=== PATIENT | female | born 1990 | race Caucasian/White ===

== ENCOUNTER 2020-04-17 07:53 | Outpatient (REF) | payer OTHER, SELFPAY | END 2020-04-17 07:54 | disposition home or self-care (01) | LOC: HO.HMGCLDS 07:53 | PROVIDERS: PCP Internal Medicine; Visit Provider Internal Medicine | DX: Z20.828 Contact with and (suspected) exposure to other viral communicable diseases (principal) | CPT/HCPCS: C9803; U0003 ==

== ENCOUNTER 2020-05-14 07:50 | Outpatient (REF) | payer OTHER, SELFPAY | END 2020-05-14 07:51 | disposition home or self-care (01) | LOC: HO.HMGCLDS 07:50 | PROVIDERS: PCP Internal Medicine; Visit Provider Internal Medicine | DX: Z20.828 Contact with and (suspected) exposure to other viral communicable diseases (principal) | CPT/HCPCS: C9803; U0003 ==

== ENCOUNTER 2021-03-12 09:32 | Outpatient (REF) | payer OTHER, SELFPAY | END 2021-03-12 09:33 | disposition home or self-care (01) | LOC: HO.HMGCLDS 09:32 | PROVIDERS: PCP Internal Medicine; Visit Provider Internal Medicine | DX: Z20.822 Contact with and (suspected) exposure to COVID-19 (principal) | CPT/HCPCS: C9803; U0003; U0005 ==

== ENCOUNTER 2022-07-23 11:31 | Outpatient (REF) | payer OTHER, SELFPAY ==
[2022-07-23 12:50] LABS: Influenza A PCR NEGATIVE (Negative); Influenza B PCR NEGATIVE (Negative); Resp Syncy Virus RNA Qual PCR NEGATIVE (Negative); SARS COV2 PCR INHOUSE NEGATIVE (Negative)
== END 2022-07-23 11:32 | disposition home or self-care (01) ==
LOC: HO.LNP 11:31
PROVIDERS: Visit Provider Internal Medicine
DX: Z20.822 Contact with and (suspected) exposure to COVID-19 (principal); R09.89 Other specified symptoms and signs involving the circulatory and respiratory systems
CPT/HCPCS: 0241U

== ENCOUNTER 2022-09-23 08:00 | Outpatient (REF) | payer OTHER, SELFPAY ==
[2022-09-23 11:09] LABS: MANUAL DIFF FLAG NO
[2022-09-23 11:30] LABS: Basophils Percent Auto 0.6 % (0-2); Eosinophils Absolute Auto 0.1 X10*3/uL (0.0-0.4); Eosinophils Percent Auto 1.8 % (0-4); Imm Gran Abs Auto 0.01 X10*3/uL (0.00-0.03); Imm Gran Pct Auto 0.2 % (0.0-0.4); Lymphocytes Absolute Auto 1.8 X10*3/uL (1.2-4.9); Mean Corpuscular HGB Conc 34.1 g/dl (31.0-35.0); Mean Corpuscular Hemoglobin 29.9 pg (27.0-33.0); Mean Corpuscular Volume 87.6 fL (80.0-98.0); Mean Platelet Volume 10.2 fL (9.4-12.3); Monocytes Absolute Auto 0.5 X10*3/uL (0.1-1.2); Monocytes Percent Auto 8.7 % (2-11); Neutrophils Percent Auto 54.7 % (45-73); Platelet Count 289 X10*3/uL (160-400); Red Blood Count 5.02 X10*6/uL (4.20-5.50); Red Cell Distribution Width 12.2 % (11.0-16.0); White Blood Count 5.4 X10*3/uL (4.8-10.8)
[2022-09-23 12:14] LABS: Alanine Aminotransferase 16 U/L (0-31); Albumin Level 4.4 g/dL (3.5-5.0); Alkaline Phosphatase 51 U/L (39-117); Anion Gap 11 (12-20); Aspartate Amino Transferase 20 U/L (5-31); Bilirubin Total 0.9 mg/dL (0.0-1.0); Blood Urea Nitrogen 13 mg/dL (9-16); Calcium 9.3 mg/dL (8.4-10.2); Carbon Dioxide 25 mmol/L (22-29); Chloride 109 mmol/L (96-108); Cholesterol 198 mg/dL; Estimated Glomerular Filt Rate > 60; Glucose Fasting 76 mg/dL (60-99); HDL Cholesterol 48 mg/dL; LDL Cholesterol Calculated 135 mg/dl; Potassium 4.1 mmol/L (3.3-5.1); Sodium 141 mmol/L (135-145); Total Protein 6.9 g/dL (6.5-8.0); Triglycerides 79 mg/dL
[2022-09-23 12:17] LABS: TSH reflex Free T4 1.36 uIU/mL (0.32-4.0); Vitamin D 25-OH Total 28.9 ng/mL (>30)
[2022-10-03 02:03] LABS: Factor V Leiden POSITIVE
== END 2022-09-23 08:01 | disposition home or self-care (01) ==
LOC: HO.HMGCLDS 08:00
PROVIDERS: PCP Internal Medicine; Visit Provider Internal Medicine
DX: Z00.00 Encounter for general adult medical examination without abnormal findings (principal); D68.51 Activated protein C resistance
CPT/HCPCS: 36415; 80053; 80061; 81241; 82306; 84443; 85025

== ENCOUNTER 2023-06-30 12:17 | Outpatient (AMB) | payer OTHER, SELFPAY ==
[2023-06-30 13:06] VITALS: BP 120/74; PULSE 81; O2SAT 99; BMI 23.7
--- NOTE | 2023-06-30 13:06 | A.OFFPC_ITS ---
<Statement entered by Kalee Gallo MD - 09/27/24 15:27> This note has been administratively?closed. Vital Signs 06/30/23 13:06 Height 5 ft 3 in Weight 134 lb BMI 23.7 BP 120/74 Blood Pressure Location Rt brachial Position Sitting Pulse 81 Pulse Source Pulse Oximeter Pulse Oximetry (%) 99 Oxygen Delivery Method Room Air Intake Visit Reasons: Annual PE Intake Note: Pt is here today for her PE: Pt states she had a papsmear back in 09/2022 at [facility]: Pt will sign a medical release Is last menstrual period known: Yes Last menstrual period: 06/11/23 Allergies No Known Allergies [No Known Allergies*] Allergy (Unverified 08/24/23 14:10) Medication List - Last Reconciled 06/30/23 by Kalee Gallo MD No Known Home Meds Tobacco use date assessed: 06/30/23 Dental Screening Dental Screen Date: 06/30/23 Did you have a dental visit in the last 12 months?: Yes Did you have a dental problem in the last 6 months where you did not have access to dental care?: No Was dental information given to patient?: Patient has dentist [facility] Medical History (Updated 08/24/23 @ 14:39 by Cici Tan MD) Hyperlipidemia 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 Leiden mutation, heterozygous Surgical History (Updated 08/24/23 @ 14:39 by Cici Tan MD) History of repair of anterior cruciate ligament of right knee Hx of section Family History Mother Factor V Leiden Maternal Grandmother Factor V Leiden DVT (deep venous thrombosis) Diabetes mellitus Social History (Updated 08/24/23 @ 14:12 by Guerita Garcia) Housing: House Patient Tobacco Use Status: Never used Tobacco e-Cigarette/Vaping Use: Never Used service: No Current occupational status: unemployed Cognitive needs: No Hearing needs: No Vision needs: No Female Reproductive History Menstrual Date of last menstrual period: 06/11/23 Questionnaire PHQ-9 Over the last 2 weeks, how often have you been bothered by any of the following problems? 1. Little interest or pleasure in doing things: not at all 2. Feeling down, depressed, or hopeless: not at all 3. Trouble falling or staying asleep, or sleeping too much: not at all 4. Feeling tired or having little energy: not at all 5. Poor appetite or overeating: not at all 6. Feeling bad about yourself - or that you are a failure or have let yourself or your family down: not at all 7. Trouble concentrating on things, such as reading the newspaper or watching television: not at all 8. Moving or speaking so slowly that other people could have noticed. Or the opposite - being so fidgety or restless that you have been moving around a lot more than usual: not at all 9. Thoughts that you would be better off or of hurting yourself in some way: not at all Total score: 0 Source: Developed by Drs. Donovan Valadez, Dayana Billings, Skyler Geller and colleagues, with an educational imelda from [employer]. Thrive Questionnaire Date Thrive assessed: 06/30/23 I am a: Patient What is your living situation today?: I have a steady place to live Within the past 12 months, did the food you bought not last and you didn't have the money to get more?: Never true Within the past 12 months, did you worry whether your food would run out before you got money to buy more?: Never true Do you have trouble paying for medicines?: No Do you have trouble getting transportation to medical appointments?: No Do you have trouble paying your heating and electricity bill?: No Do you have trouble taking care of your child, family member or friend?: No Do you have trouble with day-to-day activities such as bathing, preparing meals, shopping, managing finances, etc.?: No Are you currently unemployed and looking for a job?: No Are you interested in more education?: No THRIVE Score: 0 AUDIT C Alcohol Use Questionnaire (AUDIT-C) 1. How often do you have a drink containing alcohol?: Monthly or less 2. How many drinks containing alcohol do you have on a typical day when you are drinking?: 1 or 2 3. How often do you have six or more drinks on one occasion?: Never Total Score: 1 FELICIA-7 AMB Questionnaire FELICIA-7 Date FELICIA - 7 assessed: 07/29/22 Feeling nervous, anxious, or on edge: 0 = Not at all Not being able to stop or control worryin = Not at all Worrying too much about different things: 0 = Not at all Trouble relaxin = Not at all Being so restless that it is hard to sit still: 0 = Not at all Becoming easily annoyed or irritable: 0 = Not at all Feeling afraid as if something awful might happen: 0 = Not at all Total FELICIA-7 score (0-4 normal; 5-9 mild; 10-14 moderate; 15-21 severe): 0 Source: Developed by Drs. Donovan Valadez, Dayana Billings, Skyler Geller and colleagues, with an educational imelda from [employer]. Physical exam (Primary Care) Vital Signs: Last Vital Signs Pulse 81 06/30/23 13:06 BP 120/74 06/30/23 13:06 Pulse Ox 99 06/30/23 13:06 Oxygen Delivery Method Room Air 06/30/23 13:06 BMI result Body Mass Index 23.7 Tobacco/Smoking Status: Tobacco use Status Tobacco use date assessed 06/30/23 06/30/23 13:20 Patient Tobacco Use Status Never used Tobacco 06/30/23 13:06 e-Cigarette/Vaping Use Never Used 06/30/23 13:06 PHQ-9: PHQ-9 Score PHQ-9: Total score 0 06/30/23 13:47 Thrive Assessment: Date of Thrive Assessment Date Thrive assessed 06/30/23 06/30/23 13:25 Coding Level of Care Code Est Pt Prev Care 18-39y(72573) Diagnoses Factor 5 Leiden mutation, heterozygous D68.51 Hyperlipidemia E78.5 Annual visit for general adult medical examination with abnormal findings Z00.01
== END 2023-06-30 13:55 | disposition home or self-care (01) ==
PROVIDERS: Visit Provider Internal Medicine
DX: D68.51 Activated protein C resistance (principal); E78.5 Hyperlipidemia, unspecified; Z00.01 Encounter for general adult medical examination with abnormal findings
CPT/HCPCS: 99499

== ENCOUNTER → 2023-08-24 14:00 | Outpatient (BNV) | payer OTHER, SELFPAY | PROVIDERS: PCP Internal Medicine; Visit Provider Internal Medicine | DX: D68.51 Activated protein C resistance (principal) | CPT/HCPCS: 99203 ==

== ENCOUNTER 2024-04-01 09:16 | Outpatient (REF) | payer OTHER, SELFPAY ==
[2024-04-01 11:29] LABS: Hematocrit 41.4 % (37.0-47.0); Hemoglobin 14.3 g/dl (12.0-16.0); Mean Corpuscular HGB Conc 34.5 g/dl (31.0-35.0); Platelet Count 277 X10*3/uL (160-400); Red Blood Count 4.76 X10*6/uL (4.20-5.50); Red Cell Distribution Width 11.9 % (11.0-16.0); White Blood Count 4.8 X10*3/uL (4.8-10.8)
[2024-04-01 11:55] LABS: Alanine Aminotransferase 15 U/L (0-31); Albumin Level 4.2 g/dL (3.5-5.0); Alkaline Phosphatase 53 U/L (39-117); Anion Gap 11 (12-20); Aspartate Amino Transferase 21 U/L (5-31); Bilirubin Total 0.7 mg/dL (0.0-1.0); Blood Urea Nitrogen 13 mg/dL (9-16); Calcium 9.1 mg/dL (8.4-10.2); Carbon Dioxide 25 mmol/L (22-29); Chloride 108 mmol/L (96-108); Estimated Glomerular Filt Rate > 60; Glucose Random 91 mg/dL (60-115); Iron 77 mcg/dL (30-160); Percent Iron Saturation 31 % (15-50); Potassium 4.2 mmol/L (3.3-5.1); Sodium 140 mmol/L (135-145); Total Iron Binding Capacity 252 mcg/dL (228-428); Unsaturated Iron Binding 175 ug/dL
[2024-04-01 12:20] LABS: Folate 8.8 ng/mL (> or = 4.0); Vitamin B12 336 pg/mL (200-900)
== END 2024-04-01 09:17 | disposition home or self-care (01) ==
LOC: HO.HMGCLDS 09:16
PROVIDERS: PCP Internal Medicine; Visit Provider Nurse Practitioner Family
DX: R20.2 Paresthesia of skin (principal); H10.9 Unspecified conjunctivitis
CPT/HCPCS: 36415; 80053; 82607; 82746; 83540; 85027; 99212

== ENCOUNTER 2024-04-01 09:16 | Outpatient (AMB) | payer OTHER, SELFPAY ==
[2024-04-01 09:34] VITALS: BP 102/80; PULSE 88; TEMP 36.8; O2SAT 99; BMI 24.8
--- NOTE | 2024-04-01 09:34 | AM.OFFWIN_ITS ---
Intake Vital Signs 04/01/24 09:34 Height 5 ft 3 in Weight 140 lb BMI 24.8 BP 102/80 Blood Pressure Location Lt brachial Position Sitting Pulse 88 Pulse Source Pulse Oximeter Temp 98.2 F Temp Source Oral Pulse Oximetry (%) 99 Oxygen Delivery Method Room Air Intake Visit Reasons: EP-BL hand numbness & feets Intake Note: Pt is here today c/o biltateral hand and feet numbness no injury noted Patient Tobacco Use Status: Never used Tobacco Allergies No Known Allergies [No Known Allergies*] Allergy (Verified 04/01/24 10:17) Medication List - Last Reconciled 04/01/24 by Kacie Mario, [facility]- No Known Home Meds HPI HPI Comments History of Present Illness Details 33-year-old female with factor 5 here to day with 2 complaints. The 1st is that of conjunctivitis of the left eye. Exposed to her who has pink eye. Her left eye started with symptoms yesterday. The other is that of numbness in bilateral legs and feet that started on March 22. Reports that she was in her normal state of health and she had her daughter's sitting on her lap when she developed a sensation. She was able to get up and walk off the symptoms. However they returned the next day after sitting for 4 hours. The numbness and tingling comes and goes. It starts fci down her lower leg and extends to her feet. She denies any overt injury. She denies any alcohol use, history of diabetes. She reports a normal diet, not omitting any meat, dairy. She denies any fever, chills or systemic symptoms. She reports that she feels her blood pumping through her heart and this is new. She denies any chest pain. Wonders if it is anxiety. Exam Awake alert oriented Sclera and conjunctiva clear bilat. No drainage from the left eye. Regular rate and rhythm Moves all extremities x4, bilateral lower extremities neurovascularly intact. Normal reflexes, normal strength, normal tone, normal vibratory and monofilament testing. Plan Treat pink eye with polymyxin. Education provided. In regards to the paresthesias in her lower extremities explained to her that differentials can be something such as B12 deficiency, anemia, diabetes work at also have something to do with her spine. Advised that I can check labs today however she will need to follow up with her primary care for an ongoing workup of her complaints. I did also offer an EKG today but she declined. Labs along w/ physical exam are normal/benign. Recommend routine fu with PCP Educated on reasons to seek care in the emergency room. This note is constructed using voice recognition software. While every effort has been made to ensure accuracy in hydraulic press in operator, still errors may have been included Sometimes, these errors may affect the content or meaning of the given sentence . Total time spent caring for the patient today was 30 minutes. 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 Leiden mutation, heterozygous Surgical History (Updated 08/24/23 @ 14:39 by Cici Tan MD) History of repair of anterior cruciate ligament of right knee Hx of section Family History Mother Factor V Leiden Maternal Grandmother Factor V Leiden DVT (deep venous thrombosis) Diabetes mellitus Social History (Updated 08/24/23 @ 14:12 by Guerita Garcia) Housing: House Patient Tobacco Use Status: Never used Tobacco e-Cigarette/Vaping Use: Never Used service: No Current occupational status: unemployed Cognitive needs: No Hearing needs: No Vision needs: No Physical Exam Vital Signs: Last Vital Signs Temp 98.2 F 04/01/24 09:34 Pulse 88 04/01/24 09:34 BP 102/80 04/01/24 09:34 Pulse Ox 99 04/01/24 09:34 Oxygen Delivery Method Room Air 04/01/24 09:34 BMI result Body Mass Index 24.8 Results Reviewed Results Reviewed: RUN: 04/01/24 1258 PAGE 1 [facility] [address] [place] [id number] Tennis Desk Team Member: Kody Wright M.D. Specimen Inquiry Name: Kya Espinosa Age/Sex: 33/F : 1990 Unit#: [id number] Attend Dr: Kacie Mario [facility] Re04/01/24 Status: REG REF Location: [facility] Disch: SPEC : [id number] SILVIANO: 04/01/24 STATUS: COMP REQ : [id number] RECD: 04/01/[address]: Kacie Mario [facility] COMP: 04/01/24 ENTERED: 04/01/[address]: Kalee Gallo MD ORDERED: CBC No Diff Test Result Flag Reference WBC 4.8 4.8-10.8 X10*3/uL RBC 4.76 4.20-5.50 X10*6/uL HGB 14.3 12.0-16.0 g/dl HCT 41.4 37.0-47.0 % MCV 87.0 80.0-98.0 fL MCH 30.0 27.0-33.0 pg MCHC 34.5 31.0-35.0 g/dl RDW 11.9 11.0-16.0 % PLT 277 160-400 X10*3/uL MPV 10.0 9.4-12.3 fL NRBC Pct Auto 0.0 0.0-0.2 /100WBC NRBC Abs Auto 0.000 0.0-0.012 X10*3/uL END OF REPORT RUN: 04/01/24 1259 PAGE 1 [facility] [address] [place] [id number] Tennis Desk Team Member: Kody Wright M.D. Specimen Inquiry Name: Kya Espinosa Age/Sex: 33/F : 1990 Unit#: [id number] [facility] Dr[facility]01/[facility] Status: REG REF Location: [facility] Disch: SPEC : [id number] SILVIANO: 04/01/24 STATUS: COMP REQ : [id number] RECD: 04/01/24-[address]: Kacie Mario [facility] COMP: 04/01/24 ENTERED: 04/01/[address]: Kalee Gallo MD ORDERED: CMP, IRON PROF Test Result Flag Reference Sodium 140 135-145 mmol/L Potassium 4.2 3.3-5.1 mmol/L CL 108 96-108 mmol/L CO2 25 22-29 mmol/L Gap 11 L 12-20 BUN 13 9-16 mg/dL Creat 0.84 0.5-1.4 mg/dL EGFR > 60 NOTE: For -Maltese individuals, multiply the result by 1.210. Chronic Kidney Disease: Estimated GFR < 60 mL/min/1.73m2 Severe Kidney Disease: Estimated GFR < 15 mL/min/1.73m2 Glucose, Random 91 60-115 mg/dL CA 9.1 8.4-10.2 mg/dL Iron 77 30-160 mcg/dL TIBC 252 228-428 mcg/dL Saturation 31 15-50 % UIBC 175 ug/dL Total Bili 0.7 0.0-1.0 mg/dL AST (GOT) 21 5-31 U/L ALT (GPT) 15 0-31 U/L Protein, Total 7.0 6.5-8.0 g/dL Alb 4.2 3.5-5.0 g/dL Alk Phos 53 39-117 U/L END OF REPORT Assessment & Plan Assessment & Plan (1) Paresthesia of lower extremity: Code(s): R20.2 - Paresthesia of skin (2) Bacterial conjunctivitis of left eye: Code(s): H10.9 - Unspecified conjunctivitis Plan: . Plan . Orders: Orders Vitamin B12 and Folate Today R20.2 - Paresthesia of skin Complete Blood Count no Diff Today R20.2 - Paresthesia of skin IRON PROFILE Today R20.2 - Paresthesia of skin Comprehensive Met. Panel Today R20.2 - Paresthesia of skin Medications: New polymyxin B sulf-trimethoprim 10,000 unit- 1 mg/mL APPLY TO BOTH EYES while awake; do not exceed 6 doses in 24 hours 1 drp ophthalmic (eye) QID 10 mL 0RF 5 days Patient Instructions: Put cold or warm wet cloths on your eye a few times a day if the eye hurts. Do not wear contact lenses or eye makeup until the pink eye is gone. Throw away any eye makeup you were using when you got pink eye. Clean your contacts and storage case. Wash bed linen after 24 hours of antibiotic eye drop use. Do not share eye drops. Use a clean towel to wash your face each day until symptoms are gone. This will help prevent recurrence. What is pink eye? [place] eye is a term people use to describe an infection or irritation of the eye. The medical term for pink eye is conjunctivitis. If you have pink eye, your eye (or eyes) might: ?Turn pink or red ?Weep or ooze a gooey liquid ?Become itchy or burn ?Get stuck shut, especially when you first wake up [place] eye can be caused by an infection, allergies, or an unknown irritation. Can you catch pink eye from someone else? Yes. When pink eye is caused by an infection, it can spread easily. Usually, people catch it from touching something that has been in contact with an infected person's eye. It can also be spread when an infected person touches someone else, and then that person touches their eye. If someone you know has pink eye, avoid touching their pillowcases, towels, or other personal items. When should I see a doctor or nurse? See your doctor or nurse if your eye hurts, or if you still have trouble seeing clearly after blinking. If you do not have these problems, but think you might have pink eye, your doctor or nurse might be able to give you advice over the phone. Can pink eye be treated? Most cases of pink eye go away on their own without treatment. But some types of pink eye can be treated. When pink eye is caused by infection, it is usually caused by a virus, so antibiotics will not help. Still, pink eye caused by a virus can last several days. ?[place] eye caused by an infection with bacteria can be treated with antibiotic eye drops, gel, or ointment. ?[place] eye caused by other problems can be treated with eye drops normally used to treat allergies. These drops will not cure the pink eye, but they can help with itchiness and irritation. When using eye drops for infection, do not touch your healthy eye after touching your infected eye. Also, do not touch the bottle or dropper directly onto 1 eye and then use it in the other. These things can cause the infection to spread from 1 eye to the other. If your eyelids feel swollen, it might also help to hold a cool wet cloth on the area. What if I wear contact lenses? If you wear contact lenses and you have symptoms of pink eye, it is really important to have a doctor look at your eyes. In people who wear contacts, the symptoms of pink eye can be caused by corneal abrasion. Corneal abrasion is a scratch on the eye and can be a serious problem. During treatment for eye infections, you might need to stop wearing your contacts for a short time. If your contacts are disposable, throw them away and use new ones. If your contacts are not disposable, you need to carefully clean them. You should also throw away your contact lens case and get a new one. When can I go back to work or school? If you have pink eye caused by an infection, remember that it can spread very easily. The best way to avoid spreading it is to stay away from other people until you no longer have symptoms. If this is not possible, wash your hands often (figure 1). It's also important to avoid touching your eyes and sharing items that could spread the infection. Schools and day cares usually have rules about when a child with pink eye can return. If a child has a bacterial infection, they will probably need to stay home until they have gotten antibiotic eye drops or ointment for 24 hours. Can pink eye be prevented? To keep from getting or spreading pink eye caused by an infection: ?Wash your hands often with soap and water. ?Try not to touch your eyes. ?Avoid sharing towels, bedding, or other personal items with a person who has pink eye. If your pink eye is caused by allergies, it might help to stay inside with the windows shut as much as possible during peak allergy seasons. What problems should I watch for? Call your doctor or nurse if: ?You have trouble seeing clearly after blinking. ?Your eye is still red or has drainage after 3 days. ?You have eye pain that is getting worse. Coding Level of Care Code Est Pt Level 4 (91964) Diagnoses Paresthesia of lower extremity R20.2 Bacterial conjunctivitis of left eye H10.9
== END 2024-04-01 10:32 | disposition home or self-care (01) ==
PROVIDERS: PCP Internal Medicine; Visit Provider Nurse Practitioner Family
DX: R20.2 Paresthesia of skin (principal); H10.9 Unspecified conjunctivitis

== ENCOUNTER 2024-07-13 13:49 | Outpatient (AMB) | payer OTHER, SELFPAY ==
[2024-07-13 13:56] VITALS: BP 100/68; PULSE 81; RESP 14; TEMP 37; O2SAT 100; BMI 25.5
--- NOTE | 2024-07-13 13:56 | A.OFFPC_ITS ---
Vital Signs 07/13/24 13:56 Height 5 ft 3 in Weight 144 lb BMI 25.5 BP 100/68 Blood Pressure Location Rt brachial Position Sitting Respiration 14 Pulse 81 Pulse Source Pulse Oximeter Temp 98.6 F Temp Source Oral Pulse Oximetry (%) 100 Oxygen Delivery Method Room Air Intake Visit Reasons: Annual PE Intake Note: Pt is here today for her PE: Is last menstrual period known: Yes Last menstrual period: 06/24/24 Allergies No Known Allergies [No Known Allergies*] Allergy (Verified 07/13/24 14:32) Medication List - Last Reconciled 07/13/24 by Kalee Gallo MD No Known Home Meds Tobacco use date assessed: 07/13/24 Dental Screening Dental Screen Date: 07/13/24 Did you have a dental visit in the last 12 months?: Yes Did you have a dental problem in the last 6 months where you did not have access to dental care?: No Was dental information given to patient?: Patient has dentist HPI Annual PE HPI Details 33 year-old woman with history of hetero zygous positivity for factor 5 laden mutation, diagnosed in her teenage years, she has never experienced thrombosis, here today for her physical exam.. She received prophylactic Lovenox after delivery of her twins 3 years ago. She is not a smoker and has no other risk factors such as obesity or use of hormonal contraception. Her family history is significant for her maternal grandmother having had DVT at an older age. Her mother was never diagnosed with it. She was seen by Hematology and was told that she has a 3 to 5 fold increased risk for venous thrombosis and she may never experience thromboembolism if she does not have any other inciting risk factors. She was encouraged to continue with active life style, avoid estrogen containing contraception or smoking, and there is no role of prophylactic anticoagulation . On previous labs done her fasting lipid panel showed mild elevation in LDL cholesterol. Patient remains active, and has been compliant with healthy eating habits. Currently feels well with no complaints at present time [facility] Medical History Hyperlipidemia 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 Leiden mutation, heterozygous Surgical History History of repair of anterior cruciate ligament of right knee Hx of section Family History Mother Factor V Leiden Maternal Grandmother Factor V Leiden DVT (deep venous thrombosis) Diabetes mellitus Social History Housing: House Patient Tobacco Use Status: Never used Tobacco e-Cigarette/Vaping Use: Never Used service: No Current occupational status: unemployed Cognitive needs: No Hearing needs: No Vision needs: No Female Reproductive History Menstrual Date of last menstrual period: 06/24/24 Questionnaire PHQ-9 Over the last 2 weeks, how often have you been bothered by any of the following problems? 1. Little interest or pleasure in doing things: not at all 2. Feeling down, depressed, or hopeless: not at all 3. Trouble falling or staying asleep, or sleeping too much: not at all 4. Feeling tired or having little energy: not at all 5. Poor appetite or overeating: not at all 6. Feeling bad about yourself - or that you are a failure or have let yourself or your family down: not at all 7. Trouble concentrating on things, such as reading the newspaper or watching television: not at all 8. Moving or speaking so slowly that other people could have noticed. Or the opposite - being so fidgety or restless that you have been moving around a lot more than usual: not at all 9. Thoughts that you would be better off or of hurting yourself in some way: not at all Total score: 0 Depression Screening Interpretation: Negative Depression Screening Done: Yes 04663 - PHQ-9 Billing: Yes Source: Developed by Drs. Donovan Valadez, Dayana Billings, Skyler Geller and colleagues, with an educational imelda from [employer]. Thrive Questionnaire Date Thrive assessed: 07/13/24 I am a: Patient What is your living situation today?: I have a steady place to live Within the past 12 months, did the food you bought not last and you didn't have the money to get more?: Never true Within the past 12 months, did you worry whether your food would run out before you got money to buy more?: Never true Do you have trouble paying for medicines?: No Do you have trouble getting transportation to medical appointments?: No Do you have trouble paying your heating and electricity bill?: No Do you have trouble taking care of your child, family member or friend?: No Do you have trouble with day-to-day activities such as bathing, preparing meals, shopping, managing finances, etc.?: No Are you currently unemployed and looking for a job?: I choose not to answer this question Are you interested in more education?: No Please select the resources that you would like help with: None Currently or been in a relationship where the following occur: No concerns reported THRIVE Score: 0 AUDIT C Alcohol Use Questionnaire (AUDIT-C) 1. How often do you have a drink containing alcohol?: Monthly or less 2. How many drinks containing alcohol do you have on a typical day when you are drinking?: 1 or 2 3. How often do you have six or more drinks on one occasion?: Never Total Score: 1 FELICIA-7 AMB Questionnaire FELICIA-7 Date FELICIA - 7 assessed: 07/13/24 Feeling nervous, anxious, or on edge: 0 = Not at all Not being able to stop or control worryin = Not at all Worrying too much about different things: 0 = Not at all Trouble relaxin = Not at all Being so restless that it is hard to sit still: 0 = Not at all Becoming easily annoyed or irritable: 0 = Not at all Feeling afraid as if something awful might happen: 0 = Not at all Total FELICIA-7 score (0-4 normal; 5-9 mild; 10-14 moderate; 15-21 severe): 0 Source: Developed by Drs. Donovan Valadez, Dayana Billings, Skyler Geller and colleagues, with an educational imelda from [employer]. FELICIA-7 Assessment Billing FELICIA-7 Assessment Tool: FELICIA-7 Assessment 97169 Review of Systems Const Denies body aches, Denies fatigue, Denies fever(s), Denies headache(s) and Denies weakness Eyes Denies change in vision, Denies eye discharge and Denies itchy eyes ENT Denies dizziness, Denies headache(s), Denies nasal congestion, Denies nasal discharge and Denies sore throat Card Denies chest pain, Denies lightheadedness, Denies palpitations and Denies dyspnea Resp Denies chest congestion, Denies cough and Denies dyspnea GI Denies abdominal pain, Denies change in bowel habits and Denies heartburn Denies hematuria, Denies urinary frequency, Denies dysuria and Denies urinary urgency Musc Reports no additional complaints Skin/Breast Denies breast pain, Denies breast mass, Denies lesions and Denies rash Neuro Denies dizziness, Denies headache(s) and Denies weakness Psych Reports no additional complaints Endo Denies fatigue, Denies polydipsia, Denies polyuria and Denies palpitations Brian/Lymph Denies easy bruising Aller/Immun Denies itchy eyes and Denies seasonal rhinorrhea Physical exam (Primary Care) Vital Signs: Last Vital Signs Temp 98.6 F 07/13/24 13:56 Pulse 81 07/13/24 13:56 Resp 14 07/13/24 13:56 BP 100/68 07/13/24 13:56 Pulse Ox 100 07/13/24 13:56 Oxygen Delivery Method Room Air 07/13/24 13:56 BMI result Body Mass Index 25.5 Tobacco/Smoking Status: Tobacco use Status Tobacco use date assessed 07/13/24 07/13/24 13:59 Patient Tobacco Use Status Never used Tobacco 07/13/24 13:59 e-Cigarette/Vaping Use Never Used 07/13/24 13:59 PHQ-9: PHQ-9 Score PHQ-9: Total score 0 07/13/24 14:57 Depression Screening Interpretation: Negative Thrive Assessment: Date of Thrive Assessment Date Thrive assessed 07/13/24 07/13/24 13:59 Currently or been in a relationship where the following occur: No concerns re ported Advance Care Planning discussion: Completed/Scanned Date of discussion: 07/13/24 Who was present: Patient Forms completed: Health Care Proxy Time spent: 16-45 minutes Actual minutes spent: 2 Const General: no acute distress, well developed and alert Nutritional Appearance: average body habitus Orientation/consciousness: patient oriented x3 HENMT Head: Yes normocephalic Ears: hearing grossly normal bilaterally, external ears normal and TM's normal bilaterally General nose exam: Normal external nose present Face and sinus: Yes face symmetric Mouth: Normal oral and palatal mucosa present, oropharynx normal and moist mucous membranes Eyes General: appearance normal, both eyes and all related structures Periorbital: periorbital findings normal Eyelids: Yes eyelids normal Pupils: Equal, round and reactive pupils present EOM: EOMs intact bilaterally Neck Neck: Yes full ROM, Yes no lymphadenopathy and Yes supple Thyroid: Thyroid normal Chest Chest palpation & inspection: normal inspection of the chest and normal palpation of entire chest wall Breast/axilla palpation: normal palpation of the breasts Resp Effort & Inspection: normal respiratory effort and able to speak in complete sentences Cardio Rate: regular rate Rhythm: regular rhythm Heart sounds: S1 normal heart sound present and S2 normal heart sound present GI Palpation (GI): Soft to palpation, nontender, no guarding and no masses Auscultation: normal bowel sounds General: Yes no CVA tenderness Back/Spine/Pelvis Back: no CVA tenderness and No back tenderness Skin General skin exam: no rashes or lesions noted Neuro General: patient oriented x3, gait normal, tone normal, moves all extremities, Normal light touch and pain sensation, no focal motor deficits, CN's II-XI intact bilaterally and normal sensation to monofilament Cranial nerves: Yes Equal, round and reactive pupils present Cognition (Neuro): normal cognition Gait exam (Neuro): Normal gait present Extrem General: Yes full ROM, Yes normal exam except as noted and Yes no pedal edema Results Reviewed Results Reviewed: Name: Kya Espinosa Age/Sex: 33/F : 1990 Unit#: [id number] Attend Dr: Kacie Mario Re04/01/24 Status: DEP REF Location: [facility] Disch: SPEC : [id number] SILVIANO: 04/01/24 STATUS: COMP REQ : [id number] RECD: 04/01/24-[address]: Kacie Mario COMP: 04/01/24-1154 ENTERED: 04/01/24-[address]: Kalee Gallo MD ORDERED: CMP, IRON PROF Test Result Flag Reference Sodium 140 135-145 mmol/L Potassium 4.2 3.3-5.1 mmol/L CL 108 96-108 mmol/L CO2 25 22-29 mmol/L Gap 11 L 12-20 BUN 13 9-16 mg/dL Creat 0.84 0.5-1.4 mg/dL EGFR > 60 NOTE: For -[place] Citizen individuals, multiply the result by 1.210. Chronic Kidney Disease: Estimated GFR < 60 mL/min/1.73m2 Severe Kidney Disease: Estimated GFR < 15 mL/min/1.73m2 Glucose, Random 91 60-115 mg/dL CA 9.1 8.4-10.2 mg/dL Iron 77 30-160 mcg/dL TIBC 252 228-428 mcg/dL Saturation 31 15-50 % UIBC 175 ug/dL Total Bili 0.7 0.0-1.0 mg/dL AST (GOT) 21 5-31 U/L ALT (GPT) 15 0-31 U/L Protein, Total 7.0 6.5-8.0 g/dL Alb 4.2 3.5-5.0 g/dL Alk Phos 53 39-117 U/L Name: Kya Espinosa Age/Sex: 33/F : 1990 Unit#: [id number] Attend Dr: Kacie MarioPJania Re04/01/24 Status: DEP REF Location: [facility] Disch: SPEC : [id number] SILVIANO: 04/01/24 STATUS: COMP REQ : [id number] RECD: 04/01/24-[address]: Kacie Mario [facility] COMP: 04/01/24 ENTERED: 04/01/[address]: Kalee Gallo MD ORDERED: CBC No Diff Test Result Flag Reference WBC 4.8 4.8-10.8 X10*3/uL RBC 4.76 4.20-5.50 X10*6/uL HGB 14.3 12.0-16.0 g/dl HCT 41.4 37.0-47.0 % MCV 87.0 80.0-98.0 fL MCH 30.0 27.0-33.0 pg MCHC 34.5 31.0-35.0 g/dl RDW 11.9 11.0-16.0 % PLT 277 160-400 X10*3/uL MPV 10.0 9.4-12.3 fL NRBC Pct Auto 0.0 0.0-0.2 /100WBC NRBC Abs Auto 0.000 0.0-0.012 X10*3/uL END OF REPORT Coding Level of Care Code Est Pt Prev Care 18-39y(89640) Diagnoses Annual visit for general adult medical examination with abnormal findings Z00.01 Hyperlipidemia, unspecified hyperlipidemia type E78.5 Hyperlipidemia type: unspecified Encounter for counseling regarding advance directives Z71.89 Additional Codes FELICIA-7 Assessment Billing - FELICIA-7 Assessment Tool: FELICIA-7 Assessment 66649 ([id number]) PHQ-9 - 21321 - PHQ-9 Billing: Yes ([id number]) Vital Signs *Quality* - Advance Care Planning discussion: Completed/Scanned ([id number]) Vital Signs *Quality* - Time spent: 16-45 minutes ([id number]) Assessment & Plan Assessment & Plan (1) Annual visit for general adult medical examination with abnormal findings: Code(s): Z00.01 - Encounter for general adult medical examination with abnormal findings Plan: Will check another vanc panel and vitamin-D level. Reviewed labs from March which showed normal CBC , electrolytes, glucose levels , liver enzymes, fasting lipid panel and vitamin-D level ordered recommend dental visits every 6 months and regular eye exams, at least every 2 years. Take adequate calcium in diet and vitamin-D 3 at 2000 IU per cap once a day, in addition to weight-bearing exercises to help maintain good muscle tone and weight control. Instructed to do self-breast exam, start with yearly mammogram at age 40. Goes to her own OBGYN for routine Pap and pelvic exam. Up-to-date with her Tdap, reminded to get her yearly flu vaccine and COVID booster (2) Hyperlipidemia: Code(s): E78.5 - Hyperlipidemia, unspecified Category: Medical Qualifiers: Hyperlipidemia type: unspecified Qualified Code(s): E78.5 - Hyperlipidemia, unspecified Plan: Fasting lipid panel ordered, reinforced importance of following a healthy diet and getting regular exercise (3) Encounter for counseling regarding advance directives: Code(s): Z71.89 - Other specified counseling Plan: Initiated the conversation about Advanced Directives. Advanced Directives help patients prepare for current and future decisions about their medical treatment and place of care. Discussed with patient that it is a process where a patients current condition and prognosis are reviewed, their wishes for information regarding their illness are elicited, and likely medical dilemmas are presented and options discussed. Healthcare proxy form completed today The form can be amended as needed, reviewed yearly and make changes as needed Orders: Orders Vitamin D 25-OH Total 07/13/24 E78.5 - Hyperlipidemia, unspecified, Z00.01 - Encounter for general adult medical examination with abnormal findings, Z71.89 - Other specified counseling Lipid Panel 07/13/24 E78.5 - Hyperlipidemia, unspecified, Z00.01 - Encounter for general adult medical examination with abnormal findings, Z71.89 - Other specified counseling
== END 2024-07-13 14:50 | disposition home or self-care (01) ==
PROVIDERS: PCP Internal Medicine; Visit Provider Internal Medicine
DX: Z00.01 Encounter for general adult medical examination with abnormal findings (principal); E78.5 Hyperlipidemia, unspecified; Z71.89 Other specified counseling

== ENCOUNTER → 2024-07-13 13:49 | Outpatient (BNVA) | payer OTHER, SELFPAY | PROVIDERS: PCP Internal Medicine; Visit Provider Internal Medicine | DX: Z00.01 Encounter for general adult medical examination with abnormal findings (principal); E78.5 Hyperlipidemia, unspecified; Z71.89 Other specified counseling | CPT/HCPCS: 96127; 99395; 99497 ==

== ENCOUNTER 2025-02-15 15:08 | Outpatient (AMB) | payer OTHER, SELFPAY ==
[2025-02-15 15:09] VITALS: BP 112/70; PULSE 91; TEMP 37; O2SAT 98; BMI 24.8
--- NOTE | 2025-02-15 15:09 | AM.OFFWIN_ITS ---
Intake Vital Signs 02/15/25 15:09 Height 5 ft 3 in Weight 140 lb BMI 24.8 BP 112/70 Blood Pressure Location Rt brachial Position Sitting Pulse 91 Pulse Source Pulse Oximeter Temp 98.6 F Temp Source Oral Pulse Oximetry (%) 98 Oxygen Delivery Method Room Air Intake Visit Reasons: EP-swollen abdomen pain & diarrhea Intake Note: pt presents with increased diarrhea and upper abdominal pain, flatulence gives relief for the last couple months Patient Tobacco Use Status: Never used Tobacco Allergies No Known Allergies (No Known Allergies*) Allergy (Verified 02/15/25 15:15) Do you need a note to return to daycare/school/sports/work: No HPI HPI Comments History of Present Illness Details History of Present Illness - The patient is a 34-year-old female pr esenting with abdominal bloating and pain. - The patient reports a history of bloat ing issues since high school, with symptoms being on and off, typically resolving within a week. - Over the past two months, the bloating has become painful, localized in the mid-abdomen, and worsens with food intake. - Certain foods, such as pastas, hard br avery, grapes, and watermelon, exacerbate the symptoms. - The patient has attempted dietary jelena fications, including cutting out bread and pasta, which initially improved symptoms. - Recently, the patient suspects gluten may be a contributing factor and has considered eliminating it completely. - The patient experiences diarrhea, whic h is watery and occurs during severe episodes, but denies any blood or mucus in stools. - The patient reports a history of Facto r V Leiden but denies any significant weight changes or gallstones during . - Lifestyle factors include stress relat ed to parenting, caffeine consumption, and no alcohol or tobacco use. - The patient has not undergone any prio r gastrointestinal workup or blood tests related to these symptoms. - She denies fever, chills, CP, SOB, or back pain. - She is currently on her menses and den ies vaginal discharge or itching. - She denies dysuria, hematuria, melena, or hematochezia. Physical Exam General: Cooperative, healthy appearing, comfortable, no acute distress and well developed Orientation: Patient oriented x3 Limitations: No limitations Respiratory: Normal respiratory effort and able to speak in complete sentences. Clear to auscultation bilaterally. No w/r/r noted. Cardiovascular: Regular rate and rhythm. Normal S1 and S2. No m/r/g noted. GI: Hypoactive BS noted. Soft, non-distended, tender to palpation of the epigastric region. Mild guarding noted. Negative [place]. Negative Rovsing noted. Negative CVA tenderness noted. Skin: No rashes or lesions noted. Neuro: Patient oriented x3 Extremities: Normal to inspection Patient was informed and verbally consented to the use of an ambient scribe for clinic note documentation during this visit. 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 Leiden mutation, heterozygous Surgical History History of repair of anterior cruciate ligament of right knee Hx of section Family History Mother Factor V Leiden Maternal Grandmother Factor V Leiden DVT (deep venous thrombosis) Diabetes mellitus Social History Housing: House Patient Tobacco Use Status: Never used Tobacco e-Cigarette/Vaping Use: Never Used service: No Current occupational status: unemployed Cognitive needs: No Hearing needs: No Vision needs: No Review of Systems Const All systems reviewed & are unremarkable except as noted in HPI and below Physical Exam Vital Signs: Last Vital Signs Temp 98.6 F 02/15/25 15:09 Pulse 91 02/15/25 15:09 BP 112/70 02/15/25 15:09 Pulse Ox 98 02/15/25 15:09 Oxygen Delivery Method Room Air 02/15/25 15:09 BMI result Body Mass Index 24.8 Assessment & Plan Assessment & Plan (1) Epigastric pain: Code(s): R10.13 - Epigastric pain Plan Most likely PUD vs gastritis vs pancreatitis vs hepatitis vs a gluten/lactose s ensitivity vs possible h pylori infection plan - Blood tests including white blood cell count, liver enzymes, and kidney function to rule out underlying conditions. - H. pylori test to check for stomach infection. - Referral to gastroenterology for further evaluation. - Start omeprazole to manage stomach acid levels. - diet as tolerated. - Maintain a food diary to identify dietary triggers. - follow up with PCP Orders: Orders H pylori Ag Stool Today R10.13 - Epigastric pain Comprehensive Met. Panel Today R10.13 - Epigastric pain Complete Blood Count Auto Diff Today R10.13 - Epigastric pain Referrals Gastroenterology Referral R10.13 - Epigastric pain Medications: New omeprazole 20 mg PO DAILY 30 caps 0RF Coding Level of Care Code Est Pt Level 4 (77740) Diagnoses Epigastric pain R10.13
--- OUTSIDE RECORDS SUMMARY | 2025-02-15 19:23 | XMS_ITS ---
Author Name [facility] Organization Unknown Care Team Organization Name Specialty Phone Email Start Date End Da te [facility] Termed, PROVIDER Primary Care 03/31/202212/22
== END 2025-02-15 15:41 | disposition home or self-care (01) ==
PROVIDERS: PCP Internal Medicine; Visit Provider Physician Assistant Medical
DX: R10.13 Epigastric pain (principal)

== ENCOUNTER → 2025-02-15 15:08 | Outpatient (BNVA) | payer OTHER, SELFPAY | PROVIDERS: PCP Internal Medicine; Visit Provider Physician Assistant Medical | DX: R10.13 Epigastric pain (principal) | CPT/HCPCS: 99212 ==

== ENCOUNTER 2025-02-16 08:47 | Outpatient (REF) | payer OTHER, SELFPAY ==
[2025-02-16 10:14] LABS: MANUAL DIFF FLAG NO
[2025-02-16 10:39] LABS: Hematocrit 40.6 % (37.0-47.0); Hemoglobin 14.0 g/dl (12.0-16.0); Imm Gran Abs Auto 0.03 X10*3/uL (0.00-0.03); Imm Gran Pct Auto 0.7 % (0.0-0.4); Lymphocytes Absolute Auto 1.6 X10*3/uL (1.2-4.9); Mean Corpuscular HGB Conc 34.5 g/dl (31.0-35.0); Mean Corpuscular Hemoglobin 30.2 pg (27.0-33.0); Mean Corpuscular Volume 87.7 fL (80.0-98.0); NRBC Abs Auto 0.000 X10*3/uL (0.0-0.012); NRBC Pct Auto 0.0 /100WBC (0.0-0.2); Platelet Count 273 X10*3/uL (160-400); Red Blood Count 4.63 X10*6/uL (4.20-5.50); White Blood Count 4.6 X10*3/uL (4.8-10.8)
[2025-02-16 11:21] LABS: Alanine Aminotransferase 17 U/L (0-31); Albumin Level 4.6 g/dL (3.5-5.0); Alkaline Phosphatase 50 U/L (39-117); Anion Gap 8 (12-20); Aspartate Amino Transferase 22 U/L (5-31); Blood Urea Nitrogen 11 mg/dL (9-16); Calcium 9.0 mg/dL (8.4-10.2); Carbon Dioxide 27 mmol/L (22-29); Chloride 110 mmol/L (96-108); Cholesterol 180 mg/dL (<200); Estimated Glomerular Filt Rate > 60; HDL Cholesterol 43 mg/dL (>40); Potassium 4.3 mmol/L (3.3-5.1); Sodium 141 mmol/L (135-145); Total Protein 7.0 g/dL (6.5-8.0); Triglycerides 64 mg/dL (<150)
== END 2025-02-16 08:48 | disposition home or self-care (01) ==
LOC: HO.HMGCLDS 08:47
PROVIDERS: PCP Internal Medicine; Referring Provider Internal Medicine; Visit Provider Physician Assistant Medical
DX: Z00.01 Encounter for general adult medical examination with abnormal findings (principal); E78.5 Hyperlipidemia, unspecified; Z71.89 Other specified counseling; R10.13 Epigastric pain
CPT/HCPCS: 36415; 80053; 80061; 82306; 85025

== ENCOUNTER 2025-02-19 20:05 | Outpatient (REF) | payer OTHER, SELFPAY | END 2025-02-19 20:06 | disposition home or self-care (01) | LOC: HO.HMGCLNP 20:05 | PROVIDERS: PCP Internal Medicine; Visit Provider Physician Assistant Medical | DX: R10.13 Epigastric pain (principal) | CPT/HCPCS: 87338 ==